=== PATIENT | male | born 1970 | race Caucasian/White ===

== ENCOUNTER → 2022-07-14 | Outpatient (CLI) | payer BC ==
--- NOTE | 2022-07-14 11:58 | CT ---
EXAMINATION TYPE: CT sinus wo con CT DLP: 526.4 mGycm, Automated exposure control for dose reduction was used. DATE OF EXAM: 07/14/2022 9:12 AM COMPARISON: None. CLINICAL INDICATION:Male, 52 years old with history of J32.4 chronic pansinusitis; PHH, Chronic sinus itis CONTRAST: None. TECHNIQUE: Multiple thin axial images were obtained through the paranasal sinuses without the use of IV contrast. Additional coronal and sagittal reformatted images were submitted for evaluation. FINDINGS: Frontal sinuses: Normally developed and aerated. Frontal Recess: Clear Maxillary Sinuses: Normally developed with mild mucosal thickening bilaterally. Maxillary Infundibula([facility]): Clear, bilateral Toe cells identified without significant narrowing. Ethmoid sinuses: Normally developed and aerated. Ethmoidal notch: Protected and abutting the lateral lamina. Sphenoid sinuses: Normally developed and aerated. There is sellar sphenoid sinus pneumatization witho ut evidence of dehiscence. No dehiscence of carotid canal. No evidence of optic nerve dehiscence wit hin the sphenoid sinus. No evidence of Onodi cells. Sphenoethmoidal recesses: Clear. Nasal septum: There is an expansile mass like lesion within the anterior slightly right of the nasal septum midline with calcification and destruction of the anterior aspect of the nasal septum. This m easures grossly 2.9 x 2.0 x 3.2 cm (series 4, image 23 and series 7, image 42). Nasal Turbinates: Within normal limits. Mastoid air cells & middle ears: The air cells are clear. The middle ears are grossly unremarkable. Modified Soft tissues & Brain: Partially seen without gross abnormality. Globes are intact. Other: Cribriform plate demonstrates symmetric Keros classification type 2 cribriform plate. No evidence of bony dehiscence of skull base. Lamina papyracea is intact without evidence of remote orbital fracture or orbital prolapse into the e thmoid sinus. Pneumatization of the gagandeep krysten. IMPRESSION: 1. Indeterminate slightly right anterior septal nasal masslike lesion. Findings may represent underly ing focal thickened mucosa with a chronic component and osseous remodeling versus with underlying valeri plasm and/or polyp not entirely excluded. Further evaluation direct visualization with tissue samplin g and/or MRI with IV contrast. 2. Mild bilateral maxillary mucosal sinus disease. 3. The ostiomeatal units, frontonasal and sphenoethmoidal recesses are clear.
== END | disposition home or self-care (01) ==
LOC: RADCTMAIN 08:49
PROVIDERS: ATTEND Family Medicine
DX: J32.4 Chronic pansinusitis (principal)
CPT/HCPCS: 70486